=== PATIENT | female | born 1955 | race Caucasian/White ===

== ENCOUNTER → 2021-07-23 | Outpatient (CLI) | payer SELFPAY ==
[2021-07-29 18:10] LABS: HPV Reflexed? NOT INDICATED
== END | disposition home or self-care (01) ==
PROVIDERS: Visit Provider Obstetrics & Gynecology
DX: Z12.4 Encounter for screening for malignant neoplasm of cervix (principal)
CPT/HCPCS: 88175; G0145

== ENCOUNTER → 2022-04-22 | Outpatient (CLI) | payer SELFPAY ==
--- NOTE | 2022-04-22 13:03 | US_ITS ---
STUDY: ULTRASOUND OF THE FEMALE PELVIS - COMPLETE REASON FOR EXAM: Female, 67 years old. Incontinence LMP: Patient is postmenopausal. TECHNIQUE: Transabdominal and Transvaginal TECHNICAL QUALITY: Adequate. COMPARISON: None. FINDINGS: The uterus is retroverted and is in a midline position. The uterus measures 7.6 cm x 3.6 cm x 3.5 cm. There is a Nabothian cyst of the cervix. A pessary device is seen in the cervical region. The endometrium measures 2 mm in thickness, and is hyperechoic. There is no demonstrated endometrial mass. There is no demonstrated myometrial mass. I.U.D. - The patient does not have an I.U.D. The right ovary is non-visualized. The left ovary is non-visualized. There is no fluid in the cul-de-sac. The pre void volume of the bladder was 642 ml. US/Pelvic (Non ) IMPRESSION: A pessary device is seen in the cervical region. Electronically Signed: Mono Trent MD at 16:36 EST ,
== END | disposition home or self-care (01) ==
LOC: US 13:02
PROVIDERS: Referring Provider Obstetrics & Gynecology; Visit Provider Obstetrics & Gynecology
DX: N81.6 Rectocele (principal)
CPT/HCPCS: 76830; 76856

== ENCOUNTER 2022-05-09 08:36 | Observation (INO) | payer SELFPAY ==
[2022-04-24 13:43] LABS: Hematocrit 40.1 % (37-47); Mean Corp Hgb Conc 32.4 g/dL (32-36); Mean Corpuscular Hgb 30.4 pg (27.0-32.0); Mean Corpuscular Volume 93.7 fL (81-99); Mean Platelet Vol. 9.3 fl (6.2-12.0); Platelet Count 273 K/mm3 (150-450); RBC Distribution Width SD 44.3 fl (35.1-43.9); Red Blood Count 4.28 M/mm3 (4.2-5.4); White Blood Count 4.2 K/mm3 (4.4-11.0)
[2022-04-24 14:03] LABS: Magnesium 2.4 mg/dL (1.6-2.6)
[2022-04-24 14:07] LABS: ALB/GLOB Ratio 1.2 RATIO (0.9-2.4); AST(SGOT) 27 U/L (15-37); Alanine Aminotransfer ALT/SGPT 29 U/L (13-56); Alkaline Phosphatase 67 U/L (45-117); Anion Gap 5 (5-15); BUN 17 mg/dL (7-18); BUN/Creat Ratio 15.5 RATIO (10-20); Calcium,Total 9.5 mg/dL (8.5-10.1); Chloride 106 mmol/L (98-107); EST Glomerular Filtration Rate 53 mL/min (>60); Est Glom Filt Rate - Afr Amer 64 mL/min (>60); Globulin 3.4 g/dL (2.2-4.2); Glucose 94 mg/dL (74-106); Potassium 4.1 mmol/L (3.5-5.1); Protein, Total 7.4 g/dL (6.4-8.2); Sodium Level 141 mmol/L (136-145)
[2022-05-09] VITALS (11 sets, daily range): BP systolic 102–142; BP diastolic 69–98; PULSE 53–95; RESP 12–18; TEMP 36.4–37; O2SAT 92–100; BMI 30.2
--- NOTE | 2022-05-09 | HYST_PTH ---
PATIENT: GINA DONALDSON LOC: MS3 U#:[id number] AGE/SX: 67/F ROOM: AZ316 RE05/09/[address]: Dr. Priscilla Menard MD : [id number] BED: 1 DIS: 05/10/2022 SPEC #: [id number] RECD: 05/09/22 12:38 STATUS: ERICA FORBES #: [id number] CHAO: 05/09/22 00:[address]: Priscilla Menard DEPT: SURGICAL PATHOLOGY RECD BY: Juanita Zuniga ENTERED: 05/12/22 08:47 SP TYPE: HYSTERECT OTHR DR: Dr. Yudith Bowie MD No Primary Care Phys Tissues: Uterus, NOS Procedures: Surgery Specimen Level V HEADER OPERATION: ERAS, vaginal hysterectomy, salpingo-oophorectomy PRE-OP DIAGNOSIS: Incomplete uterovaginal prolapse, vaginal atrophy, mixed incontinence, fecal incontinence, [place]-Walker grade 3 cystocele and rectocele TISSUE SUBMITTED: Uterus, cervix, bilateral tubes and ovaries MICROSCOPIC DIAGNOSIS Uterus, hysterectomy: Cervix ? nabothian cysts, squamous metaplasia and mild chronic inflammation. Endometrium ? weakly proliferative endometrium with cystic change. Myometrium ? focal superficial adenomyosis and calcifications of vessel martinez. Right and left ovaries ? corpora albicantia. Right and left fallopian tubes - No pathologic change. AM:john 05/13/2022 MICROSCOPIC DESCRIPTION Slides are reviewed. GROSS DESCRIPTION Received in fixative is one container labeled with the patient's name and designated uterus, cervix, bilateral tubes and ovaries. The specimen consists of a hysterectomy specimen consisting of uterus with cervix and detached bilateral fallopian tubes and ovaries. The uterus with cervix weighs 58 gm and measures 7.5 x 5.0 x 3.0 cm. The serosal surface is casarez, glistening. The ectocervical mucosa is unremarkable. The external os is circular in contour and covered with hemorrhagic mucoid material. The endocervical canal measures 2.5 cm in length. The endocervical mucosa is casarez, glistening and unremarkable. The endometrial cavity is narrow and elongated and measures 3.5 cm in length and up to 1.0 cm in width. The endometrium is casarez and measures <0.1 cm in thickness. Sections of myometrial wall do not reveal any mass lesion and measures 1.5 cm in thickness. The fallopian tubes are not identified as right or left. One of the fallopian tubes measure 1.5 cm in length and 0.5 cm in diameter. The fimbrial end is identified. Sections reveal unremarkable cut surfaces. The adjacent ovary measures 2.0 x 1.5 x 0.8 cm. Sections reveal unremarkable cut surfaces. The second fallopian tube is received in two pieces and measures 4.5 cm in length and 0.5 cm in diameter. It is similar appearance to the first one. The second ovary measures 2.2 x 1.5 x 0.8 cm. Sections reveal unremarkable cut surfaces. Medical Translator sections are submitted in eight cassettes as follows: 1 - anterior cervix, 2 - posterior cervix, 3 & 4 - anterior uterine wall, 5 & 6 - posterior uterine wall, 7 - one fallopian tube and adjacent ovary, 8 - second fallopian tube and ovary. / ANDREA:john 05/12/2022 TC:5 CPT: 85082
[2022-05-09] MEDS: Magnesium 1 GM over 15 mins IV (06:05)
[2022-05-09] MEDS: Lactated Ringers 1,000 ML 40 ML IV (06:14)
[2022-05-09] MEDS: Scopolamine 1mg/72hr Patch 1 PATCH TD (06:16)
[2022-05-09] MEDS: Gabapentin 600 MG Tablet PO (06:17)
[2022-05-09] MEDS: Acetaminophen 500 MG Tablet 1000 MG PO (06:17)
[2022-05-09] MEDS: Celecoxib 200 MG Capsule 400 MG PO (06:17)
[2022-05-09] MEDS: Enoxaparin 40 MG/0.4 ML Syringe SC (06:18)
[2022-05-09] MEDS: dexAMETHasone 10 MG/ML Vial 8 MG IV (06:19)
[2022-05-09 06:55] LABS: Bedside Glucose 98 mg/dL (74-106)
--- NOTE | 2022-05-09 07:25 | PCM.HP.BLA ---
History and Physical Intake Vital Signs ? 02/20/2309:15 04/18/2307:30 Height 5 ft 6 in 5 ft 6 in Intake Visit Reasons:?CHARISSE casas combo Insurance Claims Representative Required: No Is patient in pain?: No Allergies No Known Allergies Allergy (Verified 04/17/22 08:29) Medications multivitamin 1 tab PO DAILY 02/03/19 [History Confirmed 04/17/22] Post menopausal: Yes Patient : No PFSH Medical History? 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 H/O dilation and curettage Family History? Father Colon cancer Social History? household members:? spouse number of children:? 4 current occupational status:? employed current occupation:? [employer] Smoking Status:? Never smoker alcohol intake:? current alcohol intake frequency: a few times a month Alcohol type: wine substance use type:? does not use what type of physical activity do you participate in:? walking additional social history:? retired ? [employer] CHARISSE casas combo Details: GINA DONALDSON is a 67 year old who presents for preop for hysterectomy.? she is having a combo case with Jamir for prolapse. Female Reproductive History Menopausal Symptoms: No hot flashes, No night sweats, No difficulty concentrating and No change in libido History ? ? ? 5 ? Elective abortions ? Hx Para ? ? ? 4 ? Spontaneous abortions ? ? ? 1 Hx # Term Pregnancies ? ? ? 4 ? Ectopic pregnancies ? Hx # Pregnancies ? Multiple births ? # of living children ? ? ? 4 Past Pregnancies Del. Date Name GA/Weeks Outcome Route Bth Weight Gen Labor Lgth Anesthesia Del Locatn Provider FOB 03/30/82 Walt ? 02/11/84 Jamie ? 11/22/85 Habalah ? 08/16/89 Paul ? ROS Const Constitutional: Denies fatigue, night sweats, weight gain or weight loss ENT ENT: Reports system reviewed and no additional complaints, except as documented Cardio Card: Denies chest pain Resp Resp: Denies cough or dyspnea GI GI: Reports as per HPI; Denies constipation, nausea or vomiting : Reports as per HPI; Denies hot flashes, nipple discharge, vaginal discharge, vaginal dryness, vaginal odor or vaginal pruritus Musc Musc: Denies arthralgias, back pain or muscle weakness Skin Skin/Breast: Denies alopecia, change in hair, dry skin, breast mass, breast pain, breast skin changes or nipple discharge Neuro Neuro: Reports system reviewed and no additional complaints, except as documented Psych Psych: Reports system reviewed and no additional complaints, except as documented; Denies change in libido or difficulty concentrating Endo Endo: Denies cold intolerance, excessive sweating, heat intolerance or polydipsia Jaime/Lymph Hematologic/Lymphatic: Denies easy bleeding, Denies easy bruising and Denies lymphadenopathy Exam Const General: cooperative, healthy appearing, comfortable, no acute distress and well developed Orientation: alert [facility] Head: normal to inspection and normocephalic Ears: hearing grossly normal bilaterally and external ears normal Nose: external nose normal and nares normal Face and sinus: normal facial exam Neck Neck: normal visual inspection and no lymphadenopathy Thyroid: thyroid normal Chest Chest palpation & inspection: normal inspection of the chest Resp Effort & Inspection: normal respiratory effort Auscultation: clear to auscultation bilaterally Cardio Rate: regular rate Rhythm: regular rhythm Heart Sounds: S1 normal and S2 normal GI Inspection: normal to inspection and non-distended Palpation: soft and no hepatosplenomegaly General: bladder normal to palpation External Female Exam: normal external appearance and normal appearance of the urethra Urethra: normal appearance of the urethra, normal palpation and no discharge Speculum Exam - Vagina: normal appearance of the vagina and normal vaginal discharge Speculum Exam - Cervix: normal appearance of the cervix and nontender Bimanual Exam- Vagina & Uterus: normal bimanual exam, uterine size normal, bladder normal to palpation, uterine shape normal, No tender, uterine mobility normal, consistency normal, normal palpation and non-tender Bimanual Exam- Adnexa, other: normal adnexae, adnexae mobile, no masses, rectocele (grade III) and cystocele (grade III) Pelvic Support: cystocele (grade III) and rectocele (grade III) Musc Other: gross motor intact no deficits, full bilateral strength Skin General: no rashes or lesions noted Neuro General: patient alert, patient awake, moves all extremities and no focal motor deficits Motor: muscle tone normal throughout Extrem General: normal to inspection and no pedal edema Psych Appearance: grossly normal Mental Status: mental status grossly normal Affect: normal affect Speech and Movement: speech and movement normal Coding Level of Care Code No Charge Diagnoses [place]-Walker grade 3 cystocele? N81.10 [place]-Walker grade 3 rectocele? N81.6 Assessment and Plan Assessment and Plan (1) [place]-Walker grade 3 cystocele: ?Status:?Acute ?Comment: see a/p (2) [place]-Walker grade 3 rectocele: ?Status:?Acute ?Comment: size 4 ring with support no estrogen, surgery when desired. ? ? ? Orders: Orders Pelvic (Non ) Today N81.6 - Rectocele ? Transvaginal Non- Today N81.6 - Rectocele ? Plan After discussing the patient's diagnosis and treatment plan options, patient wishes to proceed with surgical management.? I have discussed with the patient the risks, benefits, and alternatives of the procedure which include but are not limited to risks of anesthesia, bleeding, infection, possible damage to bowel, bladder, or surrounding vasculature which could lead to additional surgery to evaluate any complications.? Patient agrees to procedure and wishes to proceed.? ACOG/uptodate references given for additional information regarding procedure.? UPDATE- I have seen the patient and performed any clinically relevant updates to the history and physical exam. Priscilla Menard MD
[2022-05-09] MEDS: Cefazolin 2 GM in 0.9% Normal Saline 100 ML IV (07:27)
[2022-05-09] MEDS: Vasopressin 20 UNITS/ML Vial (07:48)
--- NOTE | 2022-05-09 08:28 | PCM.OPRPT ---
Report of Operation Date of Procedure: 05/09/22 Pre-Operative Diagnosis: Uterovaginal prolapse Post-Operative Diagnosis: Same Surgery/Procedure Performed:: Anterior and posterior repair, cystoscopy with bilateral ureteral catheterization Surgeon: Yudith Bowie Type of Anesthesia: General Description of Procedure: The patient is a 67-year-old female with significant pelvic organ prolapse who presents for surgical intervention in combination with hysterectomy and pelvic floor reconstruction. Informed consent was obtained. The patient was taken to the operating room placed on the operating room table. Anesthesia monitored the head, neck, airway, IV access and vital signs throughout the case. Once anesthesia was appropriately administered, the patient was placed into exaggerated dorsal lithotomy position in Trendelenburg. She was prepped and draped in usual sterile fashion. Dr. Menard performed her portion of the procedure and close the vaginal cuff. The case was then turned over to ms. The Myers catheter was removed, and the cystoscope was placed under direct visualization into the urinary bladder through the urethra. There is no evidence of injury to the urinary bladder at this time. A 5 Mongolian whistle-tip catheter was used to gently cannulate each ureteral orifice and the catheter was advanced to approximately 20 cm bilaterally without evidence of injury or obstruction. The cystoscope was then removed and the Myers catheter was replaced. At this time the anterior vaginal wall was isolated and injected submucosally with vasopressin. A midline vertical incision was made approximately 2 cm in length. Sharp and blunt dissection was performed until the healthy pubocervical fascia was identified bilaterally. I was unable to safely dissect all the way to the apex given its retraction cranially following removal of the uterus. The pubocervical fascia was brought together in a 2 layer repair using a combination of 3-0 PDS and 2-0 Vicryl. The vaginal mucosa was then closed in running interlocking fashion with 2-0 Vicryl. Attention was then turned towards the posterior vaginal wall which was injected submucosally with vasopressin. A midline incision was then made in full-thickness fashion dissection was performed until the rectovaginal fascia was identified but bilaterally. This was brought together in a 2 layer interrupted repair using a combination of 2-0 Vicryl and 3-0 PDS. The perineal body was reconstructed. The vaginal mucosa was then closed over the repair using running interlocking 2-0 Vicryl. At this time the Myers catheter was once again removed and the cystoscope was inserted through the urethra under direct visualization into the urinary bladder. Once again there was no evidence of injury or foreign body within the urinary bladder. The whistle-tip catheter was once again used to cannulate each ureteral orifice confirming no evidence of obstruction or injury. The cystoscope was removed, the Myers catheter was replaced. The vagina was packed using vaginal estrogen cream and packing. The patient was then awakened and taken to the recovery room in good condition. There were no complications during this procedure. Grafts/Implants Used: None Complications None Admit VTE Documentation VTE Present on Admission: Yes VTE Mechan Device Prophylaxis: SCD's VTE Pharm Prophylaxis ordered?: Yes
[2022-05-09] MEDS: Lactated Ringers 1,000 ML 100 ML IV ×2 (08:36→21:49)
--- NOTE | 2022-05-09 08:42 | DCINST_ITS ---
Discharge Instructions Diet Discharge Diet: No restrictions Activity Discharge Activity: May Not Drive (For 2 weeks) and May Shower (No tub bathing, no swimming, no hot tubs) May resume sexual activity in: 8 weeks Lifting Restrictions: No lifting over 5 pounds for 8 weeks Additional Activity Instructions:: No exercise, no strenuous activity Dressing / Incision Call your doctor if your incision/area has: Continuous Slow Oozing, Sudden Increased Bleeding, Increased Pain/ Swelling, Foul Smelling Discharge and Swelling at the incision site Call your doctor if you observe: Fever of 101 or Higher, Inability to urinate and Inability to have a bowel movement Follow Up Care Please Follow Up With: Priscilla Menard MD When: Call office for appointment. Also follow-up with Dr. Bowie Test Results: Test results from this visit will be discussed in further detail at your follow- up appointment, if applicable. Discharge Plan Admission Admit Date/Time: 05/09/22 08:36 Attending Provider: Priscilla Menard Primary Care Provider: Care Physician,No Primary Consulting Providers: Yudith Bowie Discharge Orders/Prescriptions Prescriptions: New oxycodone-acetaminophen [Percocet] 5-325 mg tablet 1 tab PO Q6H PRN (Reason: pain) 7 Days Qty: 20 0RF naproxen [naproxen] 500 mg tablet 500 mg PO BID PRN PRN (Reason: Pain) Qty: 30 1RF No Action multivitamin Tablet 1 tab PO DAILY Referrals / Follow Up: Care Physician,No Primary [Primary Care Provider] - Disposition Disposition (needs filled in before D/C Order can be placed): Home, Self Care
[2022-05-09] MEDS: Estrogens,Conj. 1 Tube 1 DOSE (09:11)
--- NOTE | 2022-05-09 09:44 | OP.PCM_ITS ---
Problems Associated Problem List Diagnoses (1) [place]-Walker grade 3 cystocele: (2) [place]-Walker grade 3 rectocele: (3) Fecal incontinence: Report of Operation Date of Procedure: 05/09/22 Pre-Operative Diagnosis: see PL Post-Operative Diagnosis: same Surgery/Procedure Performed:: TVH BSO Description of Surgical Findings:: nl uterus tubes ovaries Surgeon: Priscilla Menard erp engineer: Shilpa Purdy Type of Anesthesia: General Specimen's removed: uterus, tubes, ovaries Drains: guzman Fluids Replaced: crystalloid Description of Procedure: Patient was taken to the operating room and was placed under general anesthesia was prepped and draped in normal sterile fashion in the dorsal lithotomy position. Preoperative antibiotics and SCDs and Guzman catheter was placed inside the bladder. Weighted speculum was placed in the vagina and the anterior and posterior lip of the cervix was grasped with 2 Mary Kay clamps and circumferentially injected with dilute vasopressin. A circumferential incision was made with a scalpel and the posterior cul-de-sac was entered into sharply and a longneck speculum was placed. The anterior cul-de-sac was also dissected down and entered into sharply and the uterosacral ligaments were clamped cut and suture ligated bilaterally followed by the cardinal ligaments which were Clamped cut and suture ligated bilaterally with 0 Monocryl. The uterus serially descen ded and progressive bites were taken bilaterally up to the level of the utero- ovarian ligament bilaterally which was clamped transected and double ligated with 0 Monocryl suture and 0 Vicryl free tie. Bilateral fallopian tubes and ovaries were well visualized and noted be within normal limits and the IP ligament was transected across the base with a kelly clamp, then ovaries and tubes removed and the pedicle double ligated with O monocryl. Excellent hemostasis was noted. The vagina was closed with [id number] 0 Vicryl pop offs including the posterior and anterior peritoneum in the reapproximation. Excellent hemostasis was noted. Then Dr. Bowie began her portion of the procedure. Grafts/Implants Used: none Complications none Admit VTE Documentation VTE Present on Admission: No VTE Mechan Device Prophylaxis: SCD's VTE Pharm Prophylaxis ordered?: Yes Multi Select Codes Urinary/Genital Urinary/Genital CPT Codes: 54026 TVH+BS/O <250gr uterus
--- NOTE | 2022-05-09 09:45 | DCINST_ITS ---
Discharge Instructions Procedure Hysterectomy, Vaginal Diet Discharge Diet: No restrictions Activity Discharge Activity: Return to Normal Activity, May Not Drive (while taking narcotic pain medications.) and May Shower May resume sexual activity in: 8 weeks Additional Activity Instructions:: No exercise, no strenuous activity Dressing / Incision Call your doctor if your incision/area has: Continuous Slow Oozing, Sudden Increased Bleeding, Increased Pain/ Swelling, Foul Smelling Discharge and Swelling at the incision site Call your doctor if you observe: Fever of 101 or Higher, Inability to urinate and Inability to have a bowel movement Follow Up Care Please Follow Up With: Priscilla Menard MD Test Results: Test results from this visit will be discussed in further detail at your follow- up appointment, if applicable. Discharge Plan Admission Admit Date/Time: 05/09/22 08:36 Attending Provider: Priscilla Menard Primary Care Provider: Care Physician,Tamiko Primary Consulting Providers: Yudith Bowie Discharge Orders/Prescriptions Prescriptions: New oxycodone-acetaminophen [Percocet] 5-325 mg tablet 1 tab PO Q6H PRN (Reason: pain) 7 Days Qty: 20 0RF naproxen [naproxen] 500 mg tablet 500 mg PO BID PRN PRN (Reason: Pain) Qty: 30 1RF No Action multivitamin Tablet 1 tab PO DAILY Referrals / Follow Up: Care Physician,No Primary [Primary Care Provider] - Disposition Disposition (needs filled in before D/C Order can be placed): Home, Self Care
[2022-05-09] MEDS: Ondansetron 4 MG/2 ML Vial IV (09:57)
[2022-05-09] MEDS: Docusate Sodium 100 MG Capsule 200 MG PO ×2 (12:08→21:48)
[2022-05-09] MEDS: Cephalexin 500 MG Capsule PO ×2 (12:08→21:48)
[2022-05-09 12:41] LABS: Hemoglobin 12.8 g/dL (12.0-15.0); Mean Corp Hgb Conc 32.8 g/dL (32-36); Mean Corpuscular Hgb 31.1 pg (27.0-32.0); Mean Corpuscular Volume 94.7 fL (81-99); Platelet Count 255 K/mm3 (150-450); RBC Distribution Width CV 12.9 % (11.6-14.6); RBC Distribution Width SD 45.1 fl (35.1-43.9); Red Blood Count 4.12 M/mm3 (4.2-5.4); White Blood Count 9.1 K/mm3 (4.4-11.0)
[2022-05-10 04:01] VITALS: BP 133/83; PULSE 70; RESP 16; TEMP 37.1; O2SAT 95
--- NOTE | 2022-05-10 06:14 | PCM.PN.OB ---
Subjective Subjective Patient doing well without complaints. Tolerating PO. Ambulating without difficulty. Denies chest pain, shortness of breath, calf pain/swelling, fevers, chills, lightheadedness. Objective Data Objective Data Vital Signs: Vital Signs Temp Pulse Resp BP Pulse Ox O2 Del Method O2 Flow Rate 98.7 F 70 16 133/83 H 95 Room Air 3 05/10/22 04:01 05/10/22 04:01 05/10/22 04:01 05/10/22 04:01 05/10/22 04:01 05/10/22 04:01 05/09/22 11:29 Oxygen Flow Rate (L/min) 3 Oxygen Delivery Method Room Air Weight: 187 lb Body Mass Index (BMI) 30.2 Intake & Output: Intake and Output for Last 24 Hours 05/08/22 05/09/22 05/10/22 23:59 23:59 23:59 Intake Total 2512 / 2612 100 / 100 Output Total 1405 / 1780 375 / 375 Balance 1107 / 832 -275 / -275 Lab / Micro Data Result Diagrams: 05/09/22 12:25 04/24/22 13:07 Labs: Laboratory Results - last 24 hr 05/09/22 06:09: POC Glucose 98 05/09/22 12:25: WBC 9.1, RBC 4.12 L, Hgb 12.8, Hct 39.0, MCV 94.7, MCH 31.1, MCHC 32.8, RDW Std Deviation 45.1 H, RDW Coeff of Ramírez 12.9, Plt Count 255, MPV 9.0 ROS Constitutional Constitutional: Reports systems reviewed and no addt'l complaints, except as documented Cardiovascular Cardiovascular: Reports systems reviewed and no addt'l complaints, except as documented Respiratory/Chest Respiratory/Chest: Reports systems reviewed and no addt'l complaints, except as documented Gastrointestinal Gastrointestinal: Reports systems reviewed and no addt'l complaints, except as documented Physical Exam Const alert, oriented x3 and no apparent distress HEENT Head and Scalp: atraumatic Resp normal respiratory effort GI soft to palpation and non-tender Assessment & Plan (1) [place]-Walker grade 3 cystocele: COMMENT: see a/p (2) [place]-Walker grade 3 rectocele: COMMENT: size 4 ring with support no estrogen, surgery when desired. (3) History of total vaginal hysterectomy (TVH): COMMENT: TVHBSO combo with augusto PLAN: Plan patient is s/p tvhbso POD 1 1. routine ERAS protocol postop care- increase ambulation, encourage oral intake and oral control of pain. lovenox and scds for dvt prophylaxis, patient stable for discharge to home.
[2022-05-10 06:37] LABS: Absolute Lymphocyte Count 1.28 X10^3/uL (0.83-4.51); Absolute Neutrophil Count 6.5 X10^3/uL (2.0-7.7); Basophil# 0.02 X10^3/uL; Basophil% 0.2 % (0-1); Eosinophil# 0.01 X10^3/uL; Eosinophils% 0.1 % (0-5); Hematocrit 34.3 % (37-47); Hemoglobin 11.2 g/dL (12.0-15.0); Lymphocyte # 1.28 X10^3/ul (0.83-4.51); Mean Corp Hgb Conc 32.7 g/dL (32-36); Mean Corpuscular Hgb 30.9 pg (27.0-32.0); Mean Corpuscular Volume 94.8 fL (81-99); Monocyte# 0.68 X10^3/uL; NRBC Flagged by Analyzer 0 % (0-5); Neutrophil % 76.5 % (47-70); Platelet Count 223 K/mm3 (150-450); RBC Distribution Width SD 45.1 fl (35.1-43.9); Red Blood Count 3.62 M/mm3 (4.2-5.4); White Blood Count 8.5 K/mm3 (4.4-11.0)
[2022-05-10 07:21] VITALS: O2SAT 93
--- NOTE | 2022-05-10 09:57 | PN.URO_ITS ---
Subjective Subjective Did well overnight. No nausea/vomiting. Pain controlled. Objective Data Objective Data Vital Signs: Vital Signs Temp Pulse Resp BP Pulse Ox O2 Del Method O2 Flow Rate 98.7 F 70 16 133/83 H 93 Room Air 3 05/10/22 04:01 05/10/22 04:01 05/10/22 04:01 05/10/22 04:01 05/10/22 07:21 05/10/22 07:21 05/09/22 11:29 Oxygen Flow Rate (L/min) 3 Oxygen Delivery Method Room Air Weight: 84.822 kg Body Mass Index (BMI) 30.2 Intake & Output: Intake and Output for Last 24 Hours 05/08/22 05/09/22 05/10/22 23:59 23:59 23:59 Intake Total 2512 / 2612 400 / 400 Output Total 1405 / 1780 1025 / 1025 Balance 1107 / 832 -625 / -625 Lab / Micro Data Result Diagrams: 05/10/22 06:15 04/24/22 13:07 Labs: Laboratory Results - last 24 hr 05/09/22 12:25: WBC 9.1, RBC 4.12 L, Hgb 12.8, Hct 39.0, MCV 94.7, MCH 31.1, MCHC 32.8, RDW Std Deviation 45.1 H, RDW Coeff of Ramírez 12.9, Plt Count 255, MPV 9.0 05/10/22 06:15: WBC 8.5, RBC 3.62 L, Hgb 11.2 L, Hct 34.3 L, MCV 94.8, MCH 30.9, MCHC 32.7, RDW Std Deviation 45.1 H, RDW Coeff of Ramírez 13.0, Plt Count 223, MPV 9.0, Immature Gran % (Auto) 0.200, Neut % (Auto) 76.5 H, Lymph % (Auto) 15.0 L, [place] % (Auto) 8.0, Eos % (Auto) 0.1, Baso % (Auto) 0.2, Absolute Neuts (auto) 6.5, Absolute Lymphs (auto) 1.28, Nucleated RBC % 0 Physical Exam Const alert, oriented x3 and no apparent distress HEENT normocephalic Eyes General Eye: normal appearance of both eyes Neck supple Chest inspection of chest normal Resp normal respiratory effort, normal air movement and no retractions Cardio regular rate GI soft to palpation, non-tender and non-distended Narrative: guzman draining clear yellow. guzman and packing removed without an issue Extremity normal to inspection Skin no rashes or lesions noted Neuro oriented x3, CN's II-XII intact bilaterally and moves all extremities Psych mental status grossly normal Assessment & Plan Assessment/Plan (1) History of total vaginal hysterectomy (TVH): PLAN: Plan trial of void and home later today
[2022-05-10] MEDS: Docusate Sodium 100 MG Capsule 200 MG PO (10:59)
== END 2022-05-10 14:52 | disposition home or self-care (01) ==
LOC: MS3 08:46
PROVIDERS: Anesthesiology; Urology; Admitting Provider Obstetrics & Gynecology; Referring Provider Obstetrics & Gynecology; Visit Provider Obstetrics & Gynecology
PROC: (CPT 58260; principal; 2022-05-09 07:10)
PROC: (CPT 57260; 2022-05-09 07:10)
DX: N81.4 Uterovaginal prolapse, unspecified (principal); R15.9 Full incontinence of feces; N88.8 Other specified noninflammatory disorders of cervix uteri; M19.90 Unspecified osteoarthritis, unspecified site
CPT/HCPCS: 58262; 00944; 57260; 36415; 51702; 80053; 82962; 83735; 85025; 85027; 86850; 86900; 86901; 88307; 93005; 96360; 96361; 99221; J7120; C1758; G0378; J2405; J3475

== ENCOUNTER → 2023-03-19 | Outpatient (CLI) | payer MEDICARE, SELFPAY ==
--- OUTSIDE RECORDS SUMMARY | 2023-03-19 05:38 | XMS RPT_ITS | CCD ---
Author Name Unknown Address [address] [place] [id number] Organization [facility] Care Team Providers Care Mice Raiser Name Role Phone Unavailable Primary Care Provider Unavailabl e Problems Problem Classification Problem Date Documented Da te Episodic/Chronic Superficial injury; contusion (1 source) Foreign body - finger; Translations: [Superficial foreign body of unspecified finger, initial encounter] Episodic Results Test Name Value Interpretation Reference Range Facil ity Vital Signs Date Time Vital Sign Value Performing Clinician Faci lity 05-20-2021 16:45-0400 Body temperature 98.71 [degF] Donovan Bennett MD Work Phone: [facility] 05-20-2021 16:45-0400 Body weight 84.73 kg Donovan Bennett MD Work Phone: [facility] 05-20-2021 16:45-0400 Diastolic blood pressure 92 mm[Hg] Donovan Bennett MD Work Phone: [facility] 05-20-2021 16:45-0400 Heart rate 94 /min Donovan Bennett MD Work Phone: [facility] 05-20-2021 16:45-0400 Respiratory rate 18 /min Donovan Bennett MD Work Phone: [facility] 05-20-2021 16:45-0400 SaO2% (BldA) [Mass fraction] 96 % Donovan Bennett MD Work Phone: [facility] 05-20-2021 16:45-0400 Systolic blood pressure 138 mm[Hg] Donovan Bennett MD Work Phone: [facility] Encounters Encounter Date Encounter Type Care Provider Facility Start: 05-20-2021 End: 05-20-2021 Patient encounter procedure Donovan J Bennett MD Work Phone: [facility] Plan of Treatment Date Care Activity Detail Author Start: 10-17-2021 Influenza vaccination INFLUENZA (Sea son Ended) [facility] Start: 02-16-2021 ADVANCE DIRECTIVE DISCUSSION ADVANCE DIRECTIVE DISCUSSION [facility] Start: 02-03-2021 BONE DENSITY BONE DENSITY [facility] Start: 02-03-2021 PNEUMOVAX AGE 65 AND OVER WITH 5YR LOOKBACK (#1) PNEUMOVAX AGE 65 AND OVER WITH 5YR LOOKBACK (#1) [facility] Start: 02-03-2006 SHINGRIX VACCINE (1 of 2) SHINGRIX V ACCINE (1 of 2) [facility] Start: 02-03-2001 COLOGUARD (FIT-DNA) COLOGUARD (FIT-D NA) [facility] Start: 02-03-2001 Colonoscopy COLONOSCOPY [facility] Start: 02-03-2001 COLORECTAL CANCER SCREENING COLORECTAL CANCER SCREENING [facility] Start: 02-03-[address] COLONOGRAPHY [facility] Start: 02-03-2001 DIABETES SCREEN DIABETES SCREEN [facility] Start: 02-03-2001 FECAL OCCULT BLOOD FECAL OCCULT BLOO D [facility] Start: 02-03-2001 LIPID SCREEN LIPID SCREEN [facility] Start: 02-03-2001 SIGMOIDOSCOPY SIGMOIDOSCOPY [facility] Start: 1996 Mammography MAMMOGRAM [facility] Start: 02-03-1975 Urine microalbumin profile DTAP,TDAP ,TD (1 - Tdap) [facility] Start: 02-03-1974 HEPATITIS C SCREENING HEPATITIS C SC REENING [facility] Start: 02-03-1974 HIV SCREENING HIV SCREENING [facility] Start: 1968 Adult depression scr ning assessment DEPRESSION SCREENING [facility] Start: 02-03-1961 COVID-19 VACCINE (1) COVID-19 VACCIN E (1) [facility] Social History Date Type Detail Facility Start: 05-20-2021 Tobacco smoking stat us NHIS Never smoked tobacco [facility] Start: 05-20-2021 Tobacco use and exposure Smoke less tobacco non-user [facility] Start: 1955 Sex Assigned At Not on file [facility] Progress note 05-20-2021 Note Date & Type Note Facility 05-20-2021 Note HNO ID: [id number] Author: Donovan Bennett MD Service: ? Author Type: Physician Type: Progress Notes Filed: 05/20/2021 5:16 PM Note Text: Patient presents with: Finger Injury: R thumb bamboo in finger x today HPI: Patient got a wood floor splinter under her right thumb nail while washing her floor. She has cleansed the area with peroxide and removed a small piece of the splinter from the end of the nail. PAST MEDICAL HISTORY Diagnosis Date - NEGATIVE MEDICAL HISTORY PAST SURGICAL HISTORY Procedure Laterality Date - NONE MEDICATIONS: No prescriptions on file. Takes some supplements ALLERGIES: ALLERGIES No Known Allergies VITALS: BP 138/92 Pulse 94 Temp 37.1 ?C (98.7 ?F) Resp 18 Wt 84.7 kg (186 lb 12.8 oz) SpO2 96% PE: Pleasant, in no acute distress. Thumb: Right. There is a dark object visible below the lateral nail near the border. ASSESSMENT/PLAN: 1. Subungual foreign body of finger, initial encounter - ICD9: 915.6, ICD10: S60.459A The corner of the distal nail was trimmed with scissors and splinter forceps were used to remove a 10mm by 1mm wood splinter. The patient had significant reduction in pain on palpation after removal. She declines tetanus booster or prophylactic oral antibiotic. She will treat the area with peroxide and topical antibiotic and follow up if needed. Donovan Bennett MD [facility] History of Present illness Narrative 05-20-2021 Donovan Bennett MD - 05/20/2021 4:53 PM EDT Note Date & Type Note Facility 05-20-2021 History of Presen t illness Narrative Patient presents with: Finger Injury: R thumb bamboo in finger x today HPI: Patient got a wood floor splinter under her right thumb nail while washing her floor. She has cleansed the area with peroxide and removed a small piece of the splinter from the end of the nail. PAST MEDICAL HISTORY Diagnosis Date NEGATIVE MEDICAL HISTORY PAST SURGICAL HISTORY Procedure Laterality Date NONE MEDICATIONS: No prescriptions on file. Takes some supplements ALLERGIES: ALLERGIES No Known Allergies VITALS: BP 138/92 Pulse 94 Temp 37.1 C (98.7 F) Resp 18 Wt 84.7 kg (186 lb 12.8 oz) SpO2 96% PE: Pleasant, in no acute distress. Thumb: Right. There is a dark object visible below the lateral nail near the border. ASSESSMENT/PLAN: 1. Subungual foreign body of finger, initial encounter - ICD9: 915.6, ICD10: S60.459A The corner of the distal nail was trimmed with scissors and splinter forceps were used to remove a 10mm by 1mm wood splinter. The patient had significant reduction in pain on palpation after removal. She declines tetanus booster or prophylactic oral antibiotic. She will treat the area with peroxide and topical antibiotic and follow up if needed. Dnoovan Bennett MD documented in this encounter [facility] Evaluation note Note Date & Type Note Facility documented in this encounter [facility] Summary Purpose Family History No Family History Records Found Advance Directives No Advanced Directives Records Found Additional Source Comments Source Comments (unrecognize d section and content) In the event this informatio n is protected by the Federal Confidentiality of Alcohol and Drug Abuse Patient Records regulations: The Federal rules restrict any use of the information to criminally investigate or prosecute any alcohol or drug abuse patient.[facility] Reason for Visit (unrecogniz ed section and content) INFORMATION SOURCE (unrecogn ized section and content) FOR RECORDS PERTAINING TO PATIENTS WHO ARE OR HAVE BEEN ENROLLED IN A CHEMICAL DEPENDENCY/SUBSTANCEABUSE PROGRAM, SOME INFORMATION MAY BE OMITTED. This clinical summary was aggregated from multiple sources. Caution should be exercised in using it in the provision of clinical care. This summary normalizes information from multiple sources, and as a consequence, information in this document may materially change the coding, format and clinical context of patient data. In addition, data may be omitted in some cases. CLINICAL DECISIONS SHOULD BE BASED ON THE PRIMARY CLINICAL RECORDS. [facility]. provides no warranty or guarantee of the accuracy or completeness of information in this document.
[2023-03-19 07:17] LABS: Absolute Lymphocyte Count 1.42 X10^3/uL (0.83-4.51); Absolute Neutrophil Count 1.9 X10^3/uL (2.0-7.7); Basophil# 0.06 X10^3/uL; Basophil% 1.5 % (0-1); Eosinophil# 0.11 X10^3/uL; Eosinophils% 2.8 % (0-5); Hematocrit 44.2 % (37-47); Hemoglobin 13.9 g/dL (12.0-15.0); Lymphocyte # 1.42 X10^3/ul (0.83-4.51); Lymphocyte % 36.2 % (19-41); Mean Corp Hgb Conc 31.4 g/dL (32-36); Mean Corpuscular Hgb 29.6 pg (27.0-32.0); Mean Corpuscular Volume 94.2 fL (81-99); Monocyte# 0.41 X10^3/uL; Monocyte% 10.5 % (0-10); NRBC Flagged by Analyzer 0 % (0-5); Neutrophil # 1.91 X10^3/uL (2.7-7.7); Neutrophil % 48.7 % (47-70); Platelet Count 316 K/mm3 (150-450); RBC Distribution Width CV 12.7 % (11.6-14.6); RBC Distribution Width SD 44.3 fl (35.1-43.9); Red Blood Count 4.69 M/mm3 (4.2-5.4); White Blood Count 3.9 K/mm3 (4.4-11.0)
[2023-03-19 08:37] LABS: Insulin 4.8 mU/L (2.6-37.6); Progesterone Level 0.25 ng/mL (See Comment); Vitamin B12 410 pg/mL (211-911); Vitamin D,25 Hydroxy 28.1 ng/mL
[2023-03-19 08:53] LABS: Hemoglobin A1c 5.3 % (3.8-5.6)
[2023-03-19 11:02] LABS: ALB/GLOB Ratio 1.1 RATIO (0.9-2.4); AST(SGOT) 22 U/L (15-37); Alanine Aminotransfer ALT/SGPT 26 U/L (13-56); Albumin, Serum 4.1 g/dL (3.2-5.0); Alkaline Phosphatase 81 U/L (45-117); Anion Gap 2 (5-15); BUN 16 mg/dL (7-18); BUN/Creat Ratio 14.5 RATIO (10-20); CRP, High Sensitivity Cardiac 0.77 mg/L; Calcium,Total 9.3 mg/dL (8.5-10.1); Chloride 108 mmol/L (98-107); Cholesterol 243 mg/dL (200); EST Glomerular Filtration Rate 53 mL/min (>60); Est Glom Filt Rate - Afr Amer 64 mL/min (>60); Estradiol < 11.0 pg/mL; Ferritin 43 ng/mL (8-252); Free T3 2.9 pg/mL (2.18-3.98); Globulin 3.7 g/dL (2.2-4.2); Glucose 97 mg/dL (74-106); High Density Lipoprotein 91 mg/dL; Iron 70 ug/dL (50-170); Iron Binding Capacity,Total 337 ug/dL (250-450); Magnesium 2.6 mg/dL (1.6-2.6); PERCENT IRON SATURATION 20.8 % (15.0-55.0); Potassium 4.2 mmol/L (3.5-5.1); Protein, Total 7.8 g/dL (6.4-8.2); Sodium Level 139 mmol/L (136-145); T4 Free Direct 0.88 ng/dL (0.76-1.46); Thyroid Stim Hormone (TSH) 1.93 uIU/mL (0.358-3.74); Triglycerides 57 mg/dL; Very Low Density Lipoprotein 11 mg/dL (5-40)
[2023-03-19 17:59] LABS: Erythrocyte Sedimentation Rate 12 mm/hr (0-30)
[2023-03-20 11:09] LABS: ANTINUCLEAR ANTIBODIES DIRECT Negative (Negative)
[2023-03-20 16:09] LABS: EBV Acute VCA IgM < 36.0 U/mL (0.0-35.9)
[2023-03-29 07:07] LABS: Arsenic 7245 1 ug/L (0-9); Aspirgillus flavus Negative (Neg:<1:1); Aspirgillus fumigatus Negative (Neg:<1:1); Aspirgillus niger Negative (Neg:<1:1); CMV Acute Antibody IgM 84.9 AU/mL (0.0-29.9); CMV Antibody IgG > 10.00 U/mL (0.00-0.59); Complement C3 114 mg/dL (82-167); Copper, Serum or Plasma 123 ug/dL (80-158); DHEA Sulfate 71.2 ug/dL (20.4-186.6); Histoplasma Abs Negative (Neg:<1:1); Immunoglobulin A 295 mg/dL (87-352); Immunoglobulin E 70 IU/mL (6-495); Immunoglobulin G 1352 mg/dL (586-1602); Immunoglobulin M 185 mg/dL (26-217); Insulin Like Growth Factor 109 ng/mL (52-196); Lead, Blood 1.8 ug/dL (0.0-3.4); Lyme IgG P18 Ab Absent (.); Lyme IgG P23 Ab Absent (.); Lyme IgG P28 Ab Absent (.); Lyme IgG P30 Ab Absent (.); Lyme IgG P39 Ab Absent (.); Lyme IgG P41 Ab Present (.); Lyme IgG P45 Ab Absent (.); Lyme IgG P58 Ab Absent (.); Lyme IgG P66 Ab Absent (.); Lyme IgG P93 Ab Absent (.); Lyme IgG WB Interpretation Negative (.); Lyme IgM P23 Ab Absent (.); Lyme IgM P39 Ab Absent (.); Lyme IgM P41 Ab Absent (.); Lyme IgM WB Interpretation Negative (.); Mercury, Blood 85324 < 1.0 ug/L (0.0-14.9); Mycoplasma Pneum AB IgG 143 U/mL (0-99); Mycoplasma pneum. AB IgM < 770 U/mL (0-769); PARVOVIRUS B19 IGG 8.1 index (0.0-0.8); PARVOVIRUS B19 IGM 0.2 index (0.0-0.8); T3 Reverse 14.3 ng/dL (9.2-24.1); Testosterone, % Free 1.18 % (0.50-2.80); Testosterone, Free 0.09 ng/dL (0.10-0.85); Testosterone, Total 8 ng/dL (3-67); Thyroglobulin Antibody 10.8 IU/mL (0.0-0.9); Thyroid Peroxidase AB 121 IU/mL (0-34)
== END | disposition home or self-care (01) ==
DX: R00.2 Palpitations (principal); R53.83 Other fatigue; M25.50 Pain in unspecified joint; H93.13 Tinnitus, bilateral; Z90.711 Acquired absence of uterus with remaining cervical stump; N81.10 Cystocele, unspecified; E55.9 Vitamin D deficiency, unspecified
CPT/HCPCS: 36415; 80053; 80061; 82175; 82306; 82525; 82533; 82607; 82627; 82670; 82728; 82784; 82785; 83036; 83525; 83540; 83550; 83655; 83735; 83825; 84144; 84305; 84402; 84403; 84439; 84443; 84481; 84482; 85025; 85652; 86038; 86141; 86160; 86225; 86235; 86376; 86431; 86606; 86617; 86644; 86645; 86664; 86665; 86698; 86738; 86747; 86800; 82626

== ENCOUNTER → 2023-05-07 | Outpatient (CLI) | payer MEDICARE, SELFPAY ==
[2023-05-07 07:44] LABS: Absolute Lymphocyte Count 1.27 X10^3/uL (0.83-4.51); Absolute Neutrophil Count 1.7 X10^3/uL (2.0-7.7); Basophil# 0.05 X10^3/uL; Basophil% 1.5 % (0-1); Eosinophil# 0.09 X10^3/uL; Eosinophils% 2.6 % (0-5); Hematocrit 43.5 % (37-47); Lymphocyte # 1.27 X10^3/ul (0.83-4.51); Lymphocyte % 37.2 % (19-41); Mean Corp Hgb Conc 32.2 g/dL (32-36); Mean Corpuscular Hgb 29.7 pg (27.0-32.0); Mean Corpuscular Volume 92.2 fL (81-99); Mean Platelet Vol. 9.7 fl (6.2-12.0); Monocyte# 0.31 X10^3/uL; Monocyte% 9.1 % (0-10); NRBC Flagged by Analyzer 0 % (0-5); Neutrophil # 1.68 X10^3/uL (2.7-7.7); Neutrophil % 49.3 % (47-70); Platelet Count 258 K/mm3 (150-450); RBC Distribution Width CV 12.4 % (11.6-14.6); Red Blood Count 4.72 M/mm3 (4.2-5.4); White Blood Count 3.4 K/mm3 (4.4-11.0)
[2023-05-07 08:18] LABS: BNP,B-Type NATRIURETIC PEPTIDE 6.1 pg/mL (0-100)
[2023-05-07 08:33] LABS: ALB/GLOB Ratio 1.1 RATIO (0.9-2.4); AST(SGOT) 25 U/L (15-37); Alanine Aminotransfer ALT/SGPT 26 U/L (13-56); Albumin, Serum 4.1 g/dL (3.2-5.0); Alkaline Phosphatase 80 U/L (45-117); Anion Gap 6 (5-15); BUN 16 mg/dL (7-18); BUN/Creat Ratio 16.5 RATIO (10-20); Calcium,Total 9.6 mg/dL (8.5-10.1); Chloride 104 mmol/L (98-107); Creatinine, Serum 0.97 mg/dL (0.55-1.02); EST Glomerular Filtration Rate 61 mL/min (>60); Est Glom Filt Rate - Afr Amer 74 mL/min (>60); Globulin 3.8 g/dL (2.2-4.2); Glucose 85 mg/dL (74-106); Potassium 4.6 mmol/L (3.5-5.1); Protein, Total 7.9 g/dL (6.4-8.2); Sodium Level 138 mmol/L (136-145)
== END | disposition home or self-care (01) ==
LOC: LAB 05:57
DX: N18.9 Chronic kidney disease, unspecified (principal); R53.83 Other fatigue
CPT/HCPCS: 36415; 80053; 83880; 84100; 85025

== ENCOUNTER → 2023-05-19 | Outpatient (CLI) | payer MEDICARE, SELFPAY ==
--- NOTE | 2023-05-19 08:59 | EKG12_ITS ---
Test Reason : SOB Blood Pressure : / mmHG Vent. Rate : 071 BPM Atrial Rate : 071 BPM P-R Int : 134 ms QRS Dur : 076 ms QT Int : 394 ms P-R-T Axes : 052 -22 033 degrees QTc Int : 428 ms Normal sinus rhythm Low voltage QRS Borderline ECG Confirmed by Aristeo Boston ([id number]), videotape editor IMANI YAN ([id number]) on 05/20/2023 6:33:19 AM Referred By: DIRK TREVIÑO Confirmed By:Aristeo Bostno
--- NOTE | 2023-05-19 09:04 | RAD_ITS ---
INDICATION: DYSPNEA EXAMINATION/TECHNIQUE: X-RAY - XR Chest 2 Views COMPARISON: None. FINDINGS: LINES/DEVICES: None. LUNGS: No consolidation, edema or effusion. No pneumothorax. MEDIASTINUM AND CARDIOVASCULAR STRUCTURES: Cardiac silhouette not enlarged. Aortic atherosclerosis BONES AND SOFT TISSUES: Unremarkable. RAD/Chest PA and Lateral IMPRESSION: No radiographic evidence of acute cardiopulmonary disease. Electronically Signed: Jonnathan Turner MD at 19:17 EDT ,
== END | disposition home or self-care (01) ==
DX: R06.00 Dyspnea, unspecified (principal)
CPT/HCPCS: 71046; 93005

== ENCOUNTER → 2023-06-04 | Outpatient (CLI) | payer MEDICARE, SELFPAY ==
[2023-06-04 07:06] LABS: Absolute Lymphocyte Count 1.53 X10^3/uL (0.83-4.51); Absolute Neutrophil Count 1.7 X10^3/uL (2.0-7.7); Basophil# 0.07 X10^3/uL; Basophil% 1.8 % (0-1); Eosinophil# 0.12 X10^3/uL; Eosinophils% 3.1 % (0-5); Hematocrit 42.5 % (37-47); Hemoglobin 13.8 g/dL (12.0-15.0); Lymphocyte # 1.53 X10^3/ul (0.83-4.51); Lymphocyte % 39.7 % (19-41); Mean Corp Hgb Conc 32.5 g/dL (32-36); Mean Corpuscular Hgb 30.3 pg (27.0-32.0); Mean Corpuscular Volume 93.2 fL (81-99); Mean Platelet Vol. 9.7 fl (6.2-12.0); Monocyte# 0.45 X10^3/uL; Monocyte% 11.7 % (0-10); NRBC Flagged by Analyzer 0 % (0-5); Neutrophil # 1.67 X10^3/uL (2.7-7.7); Neutrophil % 43.4 % (47-70); Platelet Count 296 K/mm3 (150-450); RBC Distribution Width SD 44.6 fl (35.1-43.9); Red Blood Count 4.56 M/mm3 (4.2-5.4); White Blood Count 3.9 K/mm3 (4.4-11.0)
[2023-06-04 07:55] LABS: ALB/GLOB Ratio 1.1 RATIO (0.9-2.4); AST(SGOT) 25 U/L (15-37); Alanine Aminotransfer ALT/SGPT 26 U/L (13-56); Albumin, Serum 4.1 g/dL (3.2-5.0); Alkaline Phosphatase 77 U/L (45-117); Anion Gap 5 (5-15); BUN 15 mg/dL (7-18); BUN/Creat Ratio 16.8 RATIO (10-20); Calcium,Total 9.5 mg/dL (8.5-10.1); Chloride 104 mmol/L (98-107); Cholesterol 212 mg/dL (200); Creatinine, Serum 0.89 mg/dL (0.55-1.02); EST Glomerular Filtration Rate 67 mL/min (>60); Est Glom Filt Rate - Afr Amer 81 mL/min (>60); Estradiol 13.2 pg/mL; Free T3 2.5 pg/mL (2.18-3.98); Globulin 3.6 g/dL (2.2-4.2); Glucose 91 mg/dL (74-106); High Density Lipoprotein 67 mg/dL; Magnesium 2.5 mg/dL (1.6-2.6); Phosphorus 3.5 mg/dL (2.5-4.9); Potassium 4.3 mmol/L (3.5-5.1); Protein, Total 7.7 g/dL (6.4-8.2); Sodium Level 135 mmol/L (136-145); T4 Free Direct 0.75 ng/dL (0.76-1.46); Thyroid Stim Hormone (TSH) 1.06 uIU/mL (0.358-3.74); Triglycerides 86 mg/dL; Very Low Density Lipoprotein 17 mg/dL (5-40)
[2023-06-04 10:08] LABS: Progesterone Level 0.28 ng/mL (See Comment); Vitamin B12 599 pg/mL (211-911); Vitamin D,25 Hydroxy 74.8 ng/mL
[2023-06-10 19:07] LABS: CMV Acute Antibody IgM 82.1 AU/mL (0.0-29.9); CMV Antibody IgG > 10.00 U/mL (0.00-0.59); T3 Reverse 12.4 ng/dL (9.2-24.1); Testosterone, % Free 2.19 % (0.50-2.80); Testosterone, Free 0.13 ng/dL (0.10-0.85); Testosterone, Total 6 ng/dL (3-67); Thyroglobulin Antibody 9.9 IU/mL (0.0-0.9); Thyroid Peroxidase AB 132 IU/mL (0-34)
== END | disposition home or self-care (01) ==
DX: B25.9 Cytomegaloviral disease, unspecified (principal); E53.8 Deficiency of other specified B group vitamins; E55.9 Vitamin D deficiency, unspecified; N18.9 Chronic kidney disease, unspecified; E78.5 Hyperlipidemia, unspecified; E06.3 Autoimmune thyroiditis
CPT/HCPCS: 36415; 80053; 80061; 82306; 82533; 82607; 82670; 83735; 84100; 84144; 84402; 84403; 84439; 84443; 84481; 84482; 85025; 86376; 86644; 86645; 86800

== ENCOUNTER → 2023-07-16 | Outpatient (CLI) | payer MEDICARE, SELFPAY ==
--- NOTE | 2023-07-16 08:52 | ECHOD_ITS ---
Reason For Study: OTHER Procedure This was a 2D Doppler, Color Flow transthoracic echocardiogram. Exam performed in department. Left Ventricle Normal LV size. Left ventricular systolic function is normal. The estimated ejection fraction is 60 %. No evidence for diastolic dysfunction. No regional wall motion abnormalities noted. Right Ventricle Normal RV size. Normal systolic function. Atria Normal left atrium. Normal right atrium. Mitral Valve The mitral valve is structurally normal. No prolapse or stenosis seen. Trivial mitral valve insufficiency. Tricuspid Valve Normal tricuspid valve. Mild (1+) tricuspid valve insufficiency. Pulmonary artery systolic pressure is 22 mmHg. Aortic Valve The aortic valve is not well visualized in the short axis view. Aortic sclerosis, no stenosis. Mild diffuse aortic valve thickening. Pulmonic Valve The pulmonic valve is not well visualized. Great Vessels Normal aortic root. Pericardium/Pleural No pericardial effusion. MMode/2D Measurements & Calculations LVIDd: 4.3 cm IVSd: 0.89 cm Ao root diam: 3.5 cm LVIDs: 2.5 cm LVPWd: 0.72 cm RVDd: 3.2 cm FS: 41.8 % LAV(MOD-bp): 29.4 ml LVAd ap4: 24.1 cm2 SV(MOD-sp4): 38.0 ml LAV(MOD-bp) Indexed: 16.1 ml/m2 LVLd ap4: 7.2 cm LAV(MOD-sp2): 35.0 ml EDV(MOD-sp4): 66.0 ml LAV(MOD-sp4): 20.4 ml EDV(sp4-el): 68.4 ml LVAs ap4: 14.5 cm2 LVLs ap4: 6.0 cm ESV(MOD-sp4): 28.1 ml ESV(sp4-el): 29.5 ml EF(MOD-sp4): 57.5 % EF(sp4-el): 56.9 % SV(sp4-el): 38.9 ml LA A4 area: 11.0 cm2 LA dimension(2D): 2.8 cm RA A4 area: 12.9 cm2 TAPSE: 2.6 cm Time Measurements MV dec time: 0.22 sec Doppler Measurements & Calculations MV E max ean: 86.6 cm/sec Lat Peak E' Ean: 9.4 cm/sec Med Peak E' Ean: 6.7 cm/sec MV A max ean: 88.5 cm/sec E/E' lat: 9.2 E/E' med: 12.9 MV E/A: 0.98 MV V2 max: 105.8 cm/sec Ao V2 max: 115.7 cm/sec MV max P.5 mmHg MV dec slope: 392.4 cm/sec2 Ao max P.4 mmHg MV V2 mean: 63.2 cm/sec Ao V2 mean: 80.1 cm/sec MV mean P.9 mmHg Ao mean P.9 mmHg MV V2 VTI: 34.4 cm Ao V2 VTI: 22.8 cm AV (velocity ratio): 1.1 LV V1 max: 112.2 cm/sec TR max ean: 219.3 cm/sec LV V1 max P.0 mmHg TR max P.2 mmHg LV V1 mean P.8 mmHg LV V1 mean: 77.8 cm/sec LV V1 VTI: 25.7 cm ECHO/Echo Complete Interpretation Summary The estimated ejection fraction is 60 %. No evidence for diastolic dysfunction. Mild (1+) tricuspid valve insufficiency. Aortic sclerosis, no stenosis. Ordering Physician: DIRK TREVIÑO Referring Physician: DIRK TREVIÑO Performed By: Khushi Kirby RCS
== END | disposition home or self-care (01) ==
DX: R00.2 Palpitations (principal); R06.09 Other forms of dyspnea
CPT/HCPCS: 93306

== ENCOUNTER → 2023-08-11 | Outpatient (CLI) | payer MEDICARE, SELFPAY ==
[2023-08-11 08:43] LABS: Vitamin B12 486 pg/mL (211-911); Vitamin D,25 Hydroxy 106.6 ng/mL
[2023-08-11 09:04] LABS: ALB/GLOB Ratio 1.1 RATIO (0.9-2.4); AST(SGOT) 32 U/L (15-37); Alanine Aminotransfer ALT/SGPT 29 U/L (13-56); Albumin, Serum 4.4 g/dL (3.2-5.0); Alkaline Phosphatase 107 U/L (45-117); Anion Gap 4 (5-15); BUN 22 mg/dL (7-18); BUN/Creat Ratio 22.3 RATIO (10-20); Calcium,Total 9.7 mg/dL (8.5-10.1); Chloride 106 mmol/L (98-107); Cholesterol 214 mg/dL (200); Creatinine, Serum 0.99 mg/dL (0.55-1.02); EST Glomerular Filtration Rate 60 mL/min (>60); Est Glom Filt Rate - Afr Amer 72 mL/min (>60); Estradiol < 11.0 pg/mL; Free T3 2.5 pg/mL (2.18-3.98); Globulin 4.1 g/dL (2.2-4.2); Glucose 83 mg/dL (74-106); High Density Lipoprotein 82 mg/dL; Magnesium 2.4 mg/dL (1.6-2.6); Phosphorus 3.3 mg/dL (2.5-4.9); Potassium 4.1 mmol/L (3.5-5.1); Protein, Total 8.5 g/dL (6.4-8.2); Sodium Level 136 mmol/L (136-145); T4 Free Direct 0.57 ng/dL (0.76-1.46); Thyroid Stim Hormone (TSH) 0.91 uIU/mL (0.358-3.74); Triglycerides 69 mg/dL; Very Low Density Lipoprotein 14 mg/dL (5-40)
[2023-08-11 09:58] LABS: Absolute Lymphocyte Count 1.12 X10^3/uL (0.83-4.51); Absolute Neutrophil Count 2.3 X10^3/uL (2.0-7.7); Basophil# 0.06 X10^3/uL; Basophil% 1.5 % (0-1); Eosinophil# 0.06 X10^3/uL; Eosinophils% 1.5 % (0-5); Hemoglobin 14.5 g/dL (12.0-15.0); Lymphocyte # 1.12 X10^3/ul (0.83-4.51); Lymphocyte % 27.9 % (19-41); Mean Corp Hgb Conc 32.2 g/dL (32-36); Mean Corpuscular Hgb 30.7 pg (27.0-32.0); Mean Corpuscular Volume 95.1 fL (81-99); Mean Platelet Vol. 9.9 fl (6.2-12.0); Monocyte# 0.42 X10^3/uL; Monocyte% 10.5 % (0-10); NRBC Flagged by Analyzer 0 % (0-5); Neutrophil # 2.34 X10^3/uL (2.7-7.7); Neutrophil % 58.4 % (47-70); Platelet Count 288 K/mm3 (150-450); RBC Distribution Width CV 12.9 % (11.6-14.6); RBC Distribution Width SD 45.7 fl (35.1-43.9); Red Blood Count 4.73 M/mm3 (4.2-5.4)
[2023-08-12 08:12] LABS: PROGESTERONE 0.4 ng/mL (.)
== END | disposition home or self-care (01) ==
DX: N19 Unspecified kidney failure (principal); B25.9 Cytomegaloviral disease, unspecified; Z13.220 Encounter for screening for lipoid disorders; E53.8 Deficiency of other specified B group vitamins; E55.9 Vitamin D deficiency, unspecified; E06.3 Autoimmune thyroiditis
CPT/HCPCS: 36415; 80053; 80061; 82306; 82533; 82607; 82627; 82670; 83735; 84100; 84144; 84305; 84402; 84403; 84432; 84439; 84443; 84481; 84482; 85025; 86376; 86644; 86645; 86800; 82626

== ENCOUNTER → 2023-11-03 | Outpatient (CLI) | payer MEDICARE, SELFPAY ==
[2023-11-03 07:06] LABS: Absolute Lymphocyte Count 1.51 X10^3/uL (0.83-4.51); Absolute Neutrophil Count 1.9 X10^3/uL (2.0-7.7); Basophil# 0.05 X10^3/uL; Basophil% 1.3 % (0-1); Eosinophil# 0.13 X10^3/uL; Eosinophils% 3.3 % (0-5); Hematocrit 40.2 % (37-47); Hemoglobin 13.2 g/dL (12.0-15.0); Lymphocyte # 1.51 X10^3/ul (0.83-4.51); Lymphocyte % 38.3 % (19-41); Mean Corp Hgb Conc 32.8 g/dL (32-36); Mean Corpuscular Hgb 30.1 pg (27.0-32.0); Mean Corpuscular Volume 91.6 fL (81-99); Mean Platelet Vol. 9.5 fl (6.2-12.0); Monocyte# 0.38 X10^3/uL; Monocyte% 9.6 % (0-10); NRBC Flagged by Analyzer 0 % (0-5); Neutrophil # 1.86 X10^3/uL (2.7-7.7); Neutrophil % 47.2 % (47-70); Platelet Count 282 K/mm3 (150-450); RBC Distribution Width CV 13.2 % (11.6-14.6); RBC Distribution Width SD 44.2 fl (35.1-43.9); Red Blood Count 4.39 M/mm3 (4.2-5.4); White Blood Count 3.9 K/mm3 (4.4-11.0)
[2023-11-03 07:57] LABS: AST(SGOT) 26 U/L (15-37); Alanine Aminotransfer ALT/SGPT 26 U/L (13-56); Albumin, Serum 3.7 g/dL (3.2-5.0); Alkaline Phosphatase 93 U/L (45-117); Anion Gap 7 (5-15); BUN 23 mg/dL (7-18); BUN/Creat Ratio 25.7 RATIO (10-20); Calcium,Total 9.4 mg/dL (8.5-10.1); Chloride 104 mmol/L (98-107); Cholesterol 206 mg/dL (200); EST Glomerular Filtration Rate 67 mL/min (>60); Est Glom Filt Rate - Afr Amer 81 mL/min (>60); Estradiol 13.5 pg/mL; Free T3 2.7 pg/mL (2.18-3.98); Globulin 3.6 g/dL (2.2-4.2); Glucose 98 mg/dL (74-106); High Density Lipoprotein 87 mg/dL; Magnesium 2.2 mg/dL (1.6-2.6); Potassium 4.3 mmol/L (3.5-5.1); Protein, Total 7.3 g/dL (6.4-8.2); Sodium Level 136 mmol/L (136-145); Thyroid Stim Hormone (TSH) 0.983 uIU/mL (0.358-3.740); Triglycerides 69 mg/dL; Very Low Density Lipoprotein 14 mg/dL (5-40)
[2023-11-03 08:41] LABS: Vitamin B12 624 pg/mL (211-911); Vitamin D,25 Hydroxy 104.6 ng/mL
[2023-11-04 04:08] LABS: PROGESTERONE 0.5 ng/mL (.)
[2023-11-05 10:09] LABS: Thyroid Peroxidase AB 95 IU/mL (0-34)
[2023-11-12 14:12] LABS: CMV Antibody IgG > 10.00 U/mL (0.00-0.59); Coxsackie A Type 16 IgG Negative titer (Neg:<1:100); Coxsackie A Type 16 IgM Negative titer (Neg:<1:10); Coxsackie A Type 24 IgG Negative titer (Neg:<1:100); Coxsackie A Type 24 IgM Negative titer (Neg:<1:10); Coxsackie A Type 7 IgG Negative titer (Neg:<1:100); Coxsackie A Type 7 IgM Negative titer (Neg:<1:10); Coxsackie A Type 9 IgG Negative titer (Neg:<1:100); Coxsackie A Type 9 IgM Negative titer (Neg:<1:10); DHEA Sulfate 97.3 ug/dL (20.4-186.6); EBV Acute VCA IgM < 36.0 U/mL (0.0-35.9); EBV Early Antigen IgG 12.6 U/mL (0.0-8.9); EBV-VCA IgG > 600.0 U/mL (0.0-17.9); Lyme IgG P18 Ab Absent (.); Lyme IgG P23 Ab Absent (.); Lyme IgG P28 Ab Absent (.); Lyme IgG P30 Ab Absent (.); Lyme IgG P39 Ab Absent (.); Lyme IgG P41 Ab Present (.); Lyme IgG P45 Ab Absent (.); Lyme IgG P58 Ab Absent (.); Lyme IgG P66 Ab Absent (.); Lyme IgG P93 Ab Absent (.); Lyme IgG WB Interpretation Negative (.); Lyme IgM P23 Ab Absent (.); Lyme IgM P39 Ab Absent (.); Lyme IgM P41 Ab Absent (.); Lyme IgM WB Interpretation Negative (.); PARVOVIRUS B19 IGG 7.4 index (0.0-0.8); PARVOVIRUS B19 IGM 0.2 index (0.0-0.8); T3 Reverse 11.7 ng/dL (9.2-24.1); Testosterone, % Free 1.31 % (0.50-2.80); Testosterone, Free 0.24 ng/dL (0.10-0.85); Testosterone, Total 18 ng/dL (3-67); Thyroglobulin Antibody 10.3 IU/mL (0.0-0.9); Thyroid Peroxidase AB 107 IU/mL (0-34)
== END | disposition home or self-care (01) ==
DX: E06.3 Autoimmune thyroiditis (principal); R53.83 Other fatigue; N19 Unspecified kidney failure; R00.2 Palpitations; A74.9 Chlamydial infection, unspecified; B34.1 Enterovirus infection, unspecified; B27.00 Gammaherpesviral mononucleosis without complication; E55.9 Vitamin D deficiency, unspecified
CPT/HCPCS: 36415; 80053; 80061; 82306; 82533; 82607; 82627; 82670; 83735; 84144; 84402; 84403; 84439; 84443; 84481; 84482; 85025; 86376; 86617; 86644; 86645; 86658; 86663; 86664; 86665; 86747; 86800; 82626

== ENCOUNTER 2023-11-18 09:30 | Outpatient (RCR) | payer MEDICARE, SELFPAY ==
--- NOTE | 2023-07-21 13:12 | HP.PTEVAL_ITS ---
Patient's Visit Information Visit Information Visit Information: GINA DONALDSON is a 68 year old F referred to Physical Therapy by Dr. Yudith Bowie MD with a diagnosis of CYSTOCELE. Date of Evaluation: 07/06/23 Physical Therapist: Teodora Hess PT, Cert MDT Visit Plan Frequency: 1x/Week Duration: 2-4 Months Plan: PF THERAPY FOR STRENGTHENING, LENGTHENING/RELAXATION AND ENDURANCE TRAINING. HEALTHY BLADDER HABIT EDUCATION. TRAINING IN COORDINATION OF PELVIC FLOOR MUSCULATURE WITH HIP AND CORE (TRANSVERSE ABDOMINUS) MUSCULATURE. CORE STRENGTHENING. ROSARIO LE ROM, STRETCHING AND STRENGTHENING. TRAINING IN ABDOMINAL CAVITY PRESSURE MGMT WITH ADL'S. POSTURE TRAINING. 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 Present symptoms: INTERMITTENT FEELING OF BULGING IN VAGINAL AREA WHEN ON FEET ALL DAY AND WITH DOING THINGS LIKE MOWING THE LAWN. PATIENT ALSO REPORTS SHE WEARS A PAD ALL THE TIME FOR INTERMITTENT URINARY LEAKING THAT SHE GETS SOMETIMES AFTER DRINKING COFFEE AND PROLONGED SITTING WITH DOING THINGS LIKE READING. Present since: ABOUT 6 MONTHS AGO Pain Scale: N/A Is it getting better, worse or staying the same: SEEMS TO BE SLOWLY GETTING WORSE Commenced as a result of: NO APPARENT REASON Symptoms at onset: A LITTLE LESS OFTEN AND A LITTLE LESS BULGING Worse: PUSHING MOWING, WALKING A LOT Better: MORNINGS Disturbed sleep: GETTING UP TO URINATE 0-1 TIMES AT NIGHT Previous history/Previous treatment: APRIL [address] MENARD AND DR. BOWIE. Treatment this episode: NONE Coughing/sneezing/straining: INFREQUENT UI IF BLADDER IS FULL. Gait: NORMAL How long can you delay the need to urinate: USUALLY LONG NEEDED. Prolapse (Falling out feeling): INTERMITTENT. Frequency of Urination: ABOUT EVERY 3 HOURS Ability to stop urine flow: YES Ability to initiate urine stream: YES UNLESS FEELING BULGING AFTER MOWING THEN IT TAKES LONGER TO RELAX Dyspareunia: NOT CURRENTLY SEXUALLY ACTIVE Bowel Incontinence: NO Accidents: NO Unexplained weight loss: NO Imaging: NONE RECENT OF BACK, HIPS OR PELVIS. OTHER: PATIENT REPORTS DR. BOWIE TOLD HER THERE IS NO PROBLEM WITH THE SURGERY AND HER BLADDER IS JUST ROTATING NOT PROLAPSING. PMH/Recent major surgery: Post-menopausal Arthritis Anemia Injury of head and neck Former smoker History of irregular heartbeat Rectocele Cystocele [nerve damage to neck] History of total vaginal hysterectomy (TVH) H/O dilation and curettage Thyroid dz Stage I kidney Dz. Objective Objective: Sitting/Standing Posture: ANTERIOR PELVIC TILT. NO RELEVANT LATERAL SHIFT. Other Observations: INDEP GAIT AND TRANSFERS. Sensory deficit: ROSARIO LE LIGHT TOUCH SENSATION GROSSLY INTACT AND SYMMETRICAL ROM deficit: ROSARIO HIP IR TIGHTNESS R > L. Motor deficit: ROSARIO LE'S GROSSLY 5/5 WITH MMT'ING EXCEPT HIPS 4/5. PELVIC FLOOR STRENGTH IS GRADED 3/5 WITH INTERNAL MANUAL VAGINAL TESTING X 4 SEC X 3 REPS. Reflexes: ROSARIO QUADS 0, RSOARIO ACHILLES 1+ Dural Signs: NEGATIVE ROSARIO LE'S. Lumbar mvmt loss: flex - NIL ext - MIN R SG - MIN L SG - MIN PATIENT DENIES PAIN WITH LUMBAR ROM TESTING ALL PLANES. Core strength: FAIR Palpation: NO INTERNAL OR EXTERNAL TENDERNESS WITH PELVIC EXAM. NO HIGH TONE OR TRIGGER POINTS UPON PELVIC FLOOR EXAM. FUNCTIONAL SCREEN: Incontinence Impact Questionnaire Score: 2 Urogenital Distress Inventory Score: 7 Goals Goal 1:: PATIENT WILL REPORT FEELING OF BULGING 50% LESS Goal Time Frame: 8-12 Weeks Goal 2:: PATIENT WILL DEMONSTRATE/COMMUNICATE 10 CONSISTENT AND CONSECUTIVE 10 SECOND PELVIC FLOOR MUSCLE CONTRACTIONS TO DEMONSTRATE IMPROVED PELVIC FLOOR ENDURANCE. Goal Time Frame: 8-12 Weeks Goal 3:: PATIENT WILL BE INDEP WITH A HEP/HOME INSTRUCTIONS FOR CONTINUED IMPROVEMENT ONCE FORMAL PHYSICAL THERAPY CONCLUDES. Goal Time Frame: 8-12 Weeks Rehabilitation Potential Physical Therapy Diagnosis: PELVIC FLOOR WEAKNESS WITH CORE WEAKNESS, ANTERIOR PELVIC TILT, AND HIP TIGHTNESS AND WEAKNESS. Rehabilitation Potential: Good Anticipated Interventions Patient/Client Instruction: Educate patient on: Condition, Plan of Care and Risk Factors For the Purpose of:: To improve self management Therapeutic Exercise to Include: Strength training, Endurance training, Postural training, Flexibilty training and Neuromotor development For the Purpose of:: To improve muscle performance and motor function, To increase tolerance to activity/condition/position, To improve ability of physical actions for home/community/work/leisure and To increase flexibility/ROM Text: Thank you for the opportunity to evaluate your patient. For Medicare and Medicare HMO plans, please review the plan of care and approve it. It will need to be FAXED BACK to us at [phone] for Medicare purposes. For Medicare only, by signing this I certify the plan of care. Please let me know if there are questions or concerns regarding this plan of care. Physician Signature: Date:
--- NOTE | 2023-11-18 14:54 | HP.PTDCSUM ---
Discharge Summary D/C summary: It has been my pleasure to treat GINA DONALDSON referred by Dr. Yudith Bowie MD, with the diagnosis of CYSTOCELE for a total of 10 visit(s). Discharge Date: 11/18/23 Please see the following information for a summary of their discharge status. Subjective Subjective: PATIENT REPORTS ABOUT 60% IMPROVEMENT SINCE STARTING THERAPY BUT HOPEFUL THAT THERE WILL BE MORE WITH CONTINUING THE EX'S. PATIENT REPORTS THE EX'S ARE TARGETING WHAT THEY NEED TO AND SHE CAN TELL A DIFFERENCE WHEN SHE DOES THEM DAILY. IT'S MUCH BETTER WHEN I DO THE EX'S BUT WHEN I DON'T I GET BULGING WITH STANDING AND LIFTING. Overall Improvement % Improvement: 60 Objective Objective/Function: PATIENT IS INDEP WITH HEP AND APPROPRIATE FOR DISCHARGE TO [facility] AT THIS TIME. FUNCTIONAL SCREEN: Incontinence Impact Questionnaire Score: 4 Urogenital Distress Inventory Score: 6 Goals Goal 1:: PATIENT WILL REPORT FEELING OF BULGING 50% LESS Goal Progress: Goal Met Goal 2:: PATIENT WILL DEMONSTRATE/COMMUNICATE 10 CONSISTENT AND CONSECUTIVE 10 SECOND PELVIC FLOOR MUSCLE CONTRACTIONS TO DEMONSTRATE IMPROVED PELVIC FLOOR ENDURANCE. Goal Progress: Goal Met Goal 3:: PATIENT WILL BE INDEP WITH A HEP/HOME INSTRUCTIONS FOR CONTINUED IMPROVEMENT ONCE FORMAL PHYSICAL THERAPY CONCLUDES. Goal Progress: Goal Met Plan Plan: D/C D/C Information d/c sentence: If there are questions or concerns regarding this patient's physical therapy, please feel free to call me at [phone]. Thank you for the referral of this patient. Sincerely, Teodora Hess, PT, Cert MDT Balance/Gait/Functional tests Improvement % Improvement: 60
== END 2023-11-18 19:00 | disposition home or self-care (01) ==
LOC: PT 09:30
PROVIDERS: Referring Provider Urology; Visit Provider Urology
DX: N81.10 Cystocele, unspecified (principal)
CPT/HCPCS: 97162; 97530

== ENCOUNTER → 2023-12-15 | Outpatient (CLI) | payer MEDICARE, SELFPAY ==
[2023-12-15 07:28] LABS: Absolute Lymphocyte Count 1.49 X10^3/uL (0.83-4.51); Basophil# 0.04 X10^3/uL; Eosinophil# 0.15 X10^3/uL; Eosinophils% 3.6 % (0-5); Hematocrit 42.7 % (37-47); Hemoglobin 14.1 g/dL (12.0-15.0); Lymphocyte # 1.49 X10^3/ul (0.83-4.51); Lymphocyte % 36.2 % (19-41); Mean Corpuscular Hgb 30.4 pg (27.0-32.0); Mean Platelet Vol. 9.5 fl (6.2-12.0); Monocyte% 9.7 % (0-10); NRBC Flagged by Analyzer 0 % (0-5); Neutrophil # 2.03 X10^3/uL (2.7-7.7); Neutrophil % 49.3 % (47-70); Platelet Count 315 K/mm3 (150-450); RBC Distribution Width SD 44.1 fl (35.1-43.9); Red Blood Count 4.64 M/mm3 (4.2-5.4); White Blood Count 4.1 K/mm3 (4.4-11.0)
[2023-12-15 08:02] LABS: Vitamin B12 972 pg/mL (211-911); Vitamin D,25 Hydroxy 86.3 ng/mL
[2023-12-15 08:21] LABS: ALB/GLOB Ratio 1.1 RATIO (0.9-2.4); AST(SGOT) 24 U/L (15-37); Alanine Aminotransfer ALT/SGPT 28 U/L (13-56); Alkaline Phosphatase 107 U/L (45-117); Anion Gap 6 (5-15); BUN 23 mg/dL (7-18); BUN/Creat Ratio 26.7 RATIO (10-20); Calcium,Total 9.2 mg/dL (8.5-10.1); Chloride 105 mmol/L (98-107); Creatinine, Serum 0.86 mg/dL (0.55-1.02); EST Glomerular Filtration Rate 70 mL/min (>60); Est Glom Filt Rate - Afr Amer 84 mL/min (>60); Estradiol 16.6 pg/mL; Free T3 3.4 pg/mL (2.18-3.98); Globulin 3.7 g/dL (2.2-4.2); Glucose 89 mg/dL (74-106); Magnesium 2.4 mg/dL (1.6-2.6); Potassium 4.3 mmol/L (3.5-5.1); Protein, Total 7.7 g/dL (6.4-8.2); Sodium Level 137 mmol/L (136-145); T4 Free Direct 0.54 ng/dL (0.76-1.46)
[2023-12-18 04:08] LABS: PROGESTERONE 0.4 ng/mL (.)
[2023-12-23 12:10] LABS: CMV Antibody IgG > 10.00 U/mL (0.00-0.59); EBV Acute VCA IgM < 36.0 U/mL (0.0-35.9); EBV Early Antigen IgG 13.7 U/mL (0.0-8.9); EBV-VCA IgG > 600.0 U/mL (0.0-17.9); PARVOVIRUS B19 IGG 6.3 index (0.0-0.8); PARVOVIRUS B19 IGM 0.2 index (0.0-0.8); T3 Reverse 7.9 ng/dL (9.2-24.1); Testosterone, % Free 1.59 % (0.50-2.80); Testosterone, Free 0.92 ng/dL (0.10-0.85); Testosterone, Total 58 ng/dL (3-67); Thyroglobulin Antibody 10.6 IU/mL (0.0-0.9); Thyroid Peroxidase AB 105 IU/mL (0-34)
== END | disposition home or self-care (01) ==
PROVIDERS: PCP Family Medicine; Referring Provider Family Medicine; Visit Provider Family Medicine
DX: E06.3 Autoimmune thyroiditis (principal); B25.9 Cytomegaloviral disease, unspecified; R53.83 Other fatigue; N19 Unspecified kidney failure; E55.9 Vitamin D deficiency, unspecified; B27.00 Gammaherpesviral mononucleosis without complication
CPT/HCPCS: 36415; 80053; 82306; 82533; 82607; 82670; 83735; 84144; 84402; 84403; 84439; 84443; 84481; 84482; 85025; 86376; 86644; 86645; 86663; 86664; 86665; 86747; 86800

== ENCOUNTER → 2024-03-25 | Outpatient (CLI) | payer MEDICARE, SELFPAY ==
[2024-03-25 07:05] LABS: Absolute Lymphocyte Count 1.46 X10^3/uL (0.83-4.51); Basophil# 0.07 X10^3/uL; Basophil% 1.7 % (0-1); Eosinophil# 0.12 X10^3/uL; Hematocrit 39.8 % (37-47); Hemoglobin 13.1 g/dL (12.0-15.0); Lymphocyte # 1.46 X10^3/ul (0.83-4.51); Mean Corp Hgb Conc 32.9 g/dL (32-36); Mean Corpuscular Volume 91.3 fL (81-99); Monocyte# 0.38 X10^3/uL; Monocyte% 9.4 % (0-10); NRBC Flagged by Analyzer 0 % (0-5); Neutrophil # 2.02 X10^3/uL (2.7-7.7); Neutrophil % 49.7 % (47-70); Platelet Count 272 K/mm3 (150-450); RBC Distribution Width CV 13.2 % (11.6-14.6); Red Blood Count 4.36 M/mm3 (4.2-5.4); White Blood Count 4.1 K/mm3 (4.4-11.0)
[2024-03-25 07:50] LABS: Vitamin B12 745 pg/mL (211-911); Vitamin D,25 Hydroxy 87.2 ng/mL
[2024-03-25 07:57] LABS: AST(SGOT) 21 U/L (15-37); Alanine Aminotransfer ALT/SGPT 28 U/L (13-56); Albumin, Serum 3.8 g/dL (3.2-5.0); Alkaline Phosphatase 86 U/L (45-117); Anion Gap 6 (5-15); BUN 21 mg/dL (7-18); BUN/Creat Ratio 20.8 RATIO (10-20); Calcium,Total 9.5 mg/dL (8.5-10.1); Chloride 104 mmol/L (98-107); Cholesterol 182 mg/dL (200); Creatinine, Serum 1.01 mg/dL (0.55-1.02); EST Glomerular Filtration Rate 58 mL/min (>60); Est Glom Filt Rate - Afr Amer 70 mL/min (>60); Estradiol < 11.0 pg/mL; Globulin 3.9 g/dL (2.2-4.2); Glucose 89 mg/dL (74-106); High Density Lipoprotein 82 mg/dL; Magnesium 2.3 mg/dL (1.6-2.6); Phosphorus 3.5 mg/dL (2.5-4.9); Potassium 4.6 mmol/L (3.5-5.1); Protein, Total 7.7 g/dL (6.4-8.2); Sodium Level 137 mmol/L (136-145); T4 Free Direct 0.59 ng/dL (0.76-1.46); Triglycerides 55 mg/dL; Very Low Density Lipoprotein 11 mg/dL (5-40)
[2024-03-25 11:14] LABS: Free T3 2.8 pg/mL (2.18-3.98)
[2024-03-26 08:08] LABS: CMV Acute Antibody IgM 95.6 AU/mL (0.0-29.9); CMV Antibody IgG > 10.00 U/mL (0.00-0.59)
[2024-03-26 10:09] LABS: PROGESTERONE 0.4 ng/mL (.)
== END | disposition home or self-care (01) ==
PROVIDERS: PCP Family Medicine; Referring Provider Family Medicine; Visit Provider Family Medicine
DX: E06.3 Autoimmune thyroiditis (principal); R53.83 Other fatigue; B27.00 Gammaherpesviral mononucleosis without complication; N19 Unspecified kidney failure; E55.9 Vitamin D deficiency, unspecified; Z13.220 Encounter for screening for lipoid disorders; B34.3 Parvovirus infection, unspecified
CPT/HCPCS: 36415; 80053; 80061; 82306; 82533; 82607; 82627; 82670; 83735; 84100; 84144; 84270; 84305; 84402; 84403; 84432; 84439; 84443; 84481; 84482; 85025; 86376; 86644; 86645; 86663; 86664; 86665; 86747; 86800; 82626

== ENCOUNTER → 2024-06-02 | Outpatient (CLI) | payer MEDICARE, SELFPAY | END | disposition home or self-care (01) | LOC: LAB 06:07 | PROVIDERS: PCP Family Medicine; Referring Provider Family Medicine; Visit Provider Family Medicine | DX: E06.3 Autoimmune thyroiditis (principal) | CPT/HCPCS: 36415; 82533; 84432; 84439; 84443; 84481; 84482; 86376; 86800 ==

== ENCOUNTER → 2024-07-01 | Outpatient (CLI) | payer MEDICARE, SELFPAY ==
[2024-07-01 10:57] LABS: Erythrocyte Sedimentation Rate 30 mm/hr (0-30)
[2024-07-01 11:21] LABS: Absolute Lymphocyte Count 1.23 X10^3/uL (0.83-4.51); Absolute Neutrophil Count 3.9 X10^3/uL (2.0-7.7); Basophil# 0.02 X10^3/uL; Basophil% 0.4 % (0-1); Eosinophil# 0.12 X10^3/uL; Eosinophils% 2.1 % (0-5); Hematocrit 37.5 % (37-47); Hemoglobin 12.5 g/dL (12.0-15.0); Lymphocyte # 1.23 X10^3/ul (0.83-4.51); Lymphocyte % 21.5 % (19-41); Mean Corp Hgb Conc 33.3 g/dL (32-36); Mean Corpuscular Hgb 29.8 pg (27.0-32.0); Mean Corpuscular Volume 89.3 fL (81-99); Mean Platelet Vol. 9.1 fl (6.2-12.0); Monocyte# 0.45 X10^3/uL; Monocyte% 7.9 % (0-10); NRBC Flagged by Analyzer 0 % (0-5); Neutrophil # 3.87 X10^3/uL (2.7-7.7); Neutrophil % 67.7 % (47-70); Platelet Count 368 K/mm3 (150-450); RBC Distribution Width CV 13.2 % (11.6-14.6); RBC Distribution Width SD 42.8 fl (35.1-43.9); White Blood Count 5.7 K/mm3 (4.4-11.0)
[2024-07-01 11:55] LABS: ALB/GLOB Ratio 1.1 RATIO (0.9-2.4); AST(SGOT) 30 U/L (<=31); Alanine Aminotransfer ALT/SGPT 22 U/L (<=34); Albumin, Serum 4.7 g/dL (3.4-4.8); Alkaline Phosphatase 112 U/L (35-104); Anion Gap 13 (5-15); BUN 20 mg/dL (4-19); BUN/Creat Ratio 22.1 RATIO (10-20); Calcium,Total 10.2 mg/dL (7.6-11.0); Carbon Dioxide 23.3 mmol/L (21.0-32.0); Chloride 99 mmol/L (98-108); Creatinine, Serum 0.91 mg/dL (0.70-1.20); EST Glomerular Filtration Rate 69 (>60); Globulin 4.2 g/dL (2.2-4.2); Glucose 90 mg/dL (70-99); Magnesium 2.6 mg/dL (1.5-2.2); Phosphorus 3.1 mg/dL (2.7-4.5); Potassium 4.2 mmol/L (3.3-5.1); Protein, Total 8.9 g/dL (5.9-8.4); Sodium Level 135 mmol/L (133-145); Total Bilirubin 0.33 mg/dL (0.00-1.30)
[2024-07-01 12:24] LABS: Estradiol 18.8 pg/mL; Follicle Stimulating Hormone 49.7 mIU/mL; Luteinizing Hormone 24.9 mIU/mL; Vitamin B12 795 pg/mL (180-914)
[2024-07-04 13:08] LABS: ANTINUCLEAR ANTIBODIES DIRECT Negative (Negative); CRP, High Sensitivity 4.19 mg/L (0.00-3.00)
== END | disposition home or self-care (01) ==
LOC: LAB 09:04
PROVIDERS: PCP Family Medicine; Referring Provider Family Medicine; Visit Provider Family Medicine
DX: L50.9 Urticaria, unspecified (principal); B25.9 Cytomegaloviral disease, unspecified; N19 Unspecified kidney failure; E06.3 Autoimmune thyroiditis; E53.8 Deficiency of other specified B group vitamins; E55.9 Vitamin D deficiency, unspecified
CPT/HCPCS: 36415; 80053; 82306; 82607; 82627; 82670; 83001; 83002; 83735; 84100; 84144; 84270; 84305; 84402; 84403; 85025; 85652; 86038; 86141; 86225; 86617; 86644; 86645; 86663; 86664; 86665; 82626